=== PATIENT | male | born 1985 | race Caucasian/White ===

== ENCOUNTER 2017-05-19 19:04 | Emergency (ER) | payer MEDICAID ==
[~2017-05-19] VITALS: Ht 172.7 cm; Wt 72.6 kg
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
--- NOTE | 2017-05-19 19:32 | NUR ---
IVA TUBING MACHINE OPERATOR AT BEDSIDE FOR EVAL.
--- NOTE | 2017-05-19 19:39 | NUR ---
SUPERVISING PRODUCER AT BEDSIDE FOR EVAL.
[2017-05-19 19:40] LABS: APPEARANCE,URINE Turbid (CLEAR); BILIRUBIN,URINE Negative (NEGATIVE); BLOOD, URINE Negative Ery/uL (NEGATIVE); COLOR,URINE Yellow (YELLOW); KETONES,URINE 15 (NEGATIVE); LEUKOCYTE ESTERASE ,URINE Negative (NEGATIVE); NITRITE, URINE Negative (NEGATIVE); PROTEIN,URINE 30 mg/dl (NEGATIVE); UGLUCOSE Negative (NEGATIVE); UROBILINOGEN,URINE 0.2 EU/dL (0.2)
[2017-05-19 19:43] LABS: BASOPHILS # (AUTO) 0.1 /CMM (0.0-0.2); BASOPHILS % (AUTO) 1.2 % (0.0-2.0); EOSINOPHILS # (AUTO) 0.1 /CMM (0.0-0.7); EOSINOPHILS % (AUTO) 1.1 % (0.0-6.0); HEMATOCRIT 47 % (39-51); HEMOGLOBIN 15.4 g/dL (13.5-17.5); LYMPHOCYTES # (AUTO) 1.1 /CMM (0.8-4.8); LYMPHOCYTES % (AUTO) 19.1 % (20.0-44.0); MEAN CORPUSCULAR HEMOGLOBIN 30 PG (26.0-33.0); MEAN CORPUSCULAR HGB CONC 33 g/dl (31.0-36.0); MEAN CORPUSCULAR VOLUME 91 fL (80-96); MONOCYTES # (AUTO) 0.5 /CMM (0.1-1.30); MONOCYTES % (AUTO) 9.3 % (2.0-12.0); NEUTROPHILS # (AUTO) 3.8 /CMM (1.8-8.9); NEUTROPHILS % (AUTO) 69.3 % (43.0-81.0); PLATELET COUNT (AUTO) 301 /CMM (150-450); RDW COEFFICIENT OF VARIATION 12.3 (11.5-15.0); RED BLOOD CELL COUNT(AUTO) 5.18 MIL/uL (4.5-6.0); WHITE BLOOD COUNT (AUTO) 5.7 K/uL (4.3-11.0)
[2017-05-19 19:52] LABS: BACTERIA,URINE Moderate /HPF (None Seen); RBC,URINE 0-2 /HPF (0-2); SQUAMOUS EPITHELIAL CELL,UR Few /HPF (None Seen); WBC,URINE 0-2 /HPF (0-3)
[2017-05-19 19:53] LABS: CARBON DIOXIDE 28 mmol/L (21-32); CHLORIDE 106 mmol/L (98-107); GLUCOSE 112 mg/dL (74-106); POTASSIUM 3.6 mmol/L (3.5-5.1); SODIUM SERUM 141 mmol/L (136-145); UREA NITROGEN, BLOOD 13 mg/dL (7-18)
[2017-05-19 20:00] LABS: ACETAMINOPHEN 0 ug/ml (10-30); ALANINE AMINOTRANSFERASE 18 U/L (12-78); ALBUMIN 4.2 g/dL (3.4-5.0); ALCOHOL, BLOOD < 3 mg/dL (0-0); ALKALINE PHOSPHATASE 98 U/L (46-116); ASPARTATE AMINOTRANSFERASE 21 U/L (15-37); BILIRUBIN,DIRECT 0.2 mg/dL (0.0-0.2); BILIRUBIN,TOTAL 0.8 mg/dL (0.2-1.0); SALICYLATE 0.2 mg/dL (2.8-20.0); TOTAL PROTEIN, SERUM 7.4 g/dL (6.4-8.2)
[2017-05-19] MEDS ORDERED: OLANZAPINE 5 MG TABLET PO ONE (20:00)
[2017-05-19] MEDS ORDERED: OLANZAPINE 5 MG TABLET ONE (20:01)
--- NOTE | 2017-05-19 20:43 | NUR ---
CALLED [facility] FOR PSYCH EVAL, ETA 1 HOUR
--- NOTE | 2017-05-19 21:30 | NUR ---
ALLISON RN AT BEDSIDE FOR PSYCH EVAL.
--- NOTE | 2017-05-19 23:07 | NUR ---
CALLED [facility] FOR TRANSPORT TO [facility], ETA 30 MIN
--- NOTE | 2017-05-19 23:24 | NUR ---
REPORT GIVEN TO HARMAN AT [facility]. AWAITING TRANSFER.
--- NOTE | 2017-05-19 23:45 | NUR ---
TRANSFERED TO [facility]. STABLE CONDITION.
[2017-05-19 23:46] VITALS: BP 116/59
== END 2017-05-19 23:46 ==
LOC: ER 19:06 → EDSEX 19:06 → ER 23:46
DX: F29 Unspecified psychosis not due to a substance or known physiological condition (principal); F17.200 Nicotine dependence, unspecified, uncomplicated; F31.9 Bipolar disorder, unspecified; F20.9 Schizophrenia, unspecified; R82.99 Other abnormal findings in urine; Z59.0 Homelessness
CPT/HCPCS: 36415; 80048; 80076; 80305; 80329; 81001; 85025; 87086; 99285; 99406; A4606; G0480 ×2; Z7610; 81000-TC

== ENCOUNTER 2022-02-09 23:00 | Emergency (ER) | payer MEDICAID ==
[~2022-02-09] VITALS: Ht 172.7 cm; Wt 72.6 kg
--- NOTE | 2022-02-09 23:05 | NUR ---
BIB [employer] FOR C/O SI, PLANING TO USE A RAZOR. PD WILL PLACE THE PT ON [address]. PATIENT ALERT AND ORIENTED X3. AMBULATORY WITH NON LABORED BREATHING. PATIENT IN BED 14 BELONGINGS TAKEN AND PLACED IN A GOWN.
[2022-02-09 23:32] LABS: BASOPHILS # (AUTO) 0.1 K/uL (0.0-0.2); BASOPHILS % (AUTO) 0.8 % (0.0-2.0); EOSINOPHILS % (AUTO) 0.7 % (0.0-6.0); HEMATOCRIT 45 % (39-51); HEMOGLOBIN 15.3 g/dL (13.5-17.5); LYMPHOCYTES # (AUTO) 1.4 K/uL (0.8-4.8); LYMPHOCYTES % (AUTO) 9.5 % (20.0-44.0); MEAN CORPUSCULAR HGB CONC 34 g/dl (31.0-36.0); MEAN CORPUSCULAR VOLUME 89 fL (80-96); MONOCYTES # (AUTO) 1.2 K/uL (0.1-1.30); MONOCYTES % (AUTO) 8.4 % (2.0-12.0); NEUTROPHILS # (AUTO) 11.6 K/uL (1.8-8.9); NEUTROPHILS % (AUTO) 80.6 % (43.0-81.0); PLATELET COUNT (AUTO) 319 K/uL (150-450); RED BLOOD CELL COUNT(AUTO) 5.06 MIL/uL (4.5-6.0); WHITE BLOOD COUNT (AUTO) 14.4 K/uL (4.3-11.0)
--- NOTE | 2022-02-09 23:55 | NUR ---
COVID SWAB DONE AND SENT TO LAB
--- NOTE | 2022-02-09 23:56 | NUR ---
URINE COLLECTED AND SENT TO LAB
[2022-02-10 00:04] LABS: ALANINE AMINOTRANSFERASE 182 U/L (12-78); ALCOHOL, BLOOD < 3 mg/dL (0-0); ALKALINE PHOSPHATASE 113 U/L (46-116); ASPARTATE AMINOTRANSFERASE 60 U/L (15-37); BILIRUBIN,DIRECT 0.1 mg/dL (0.0-0.2); BILIRUBIN,TOTAL 0.4 mg/dL (0.2-1.0); CARBON DIOXIDE 23 mmol/L (21-32); CHLORIDE 105 mmol/L (98-107); GLUCOSE 110 mg/dL (74-106); SODIUM SERUM 138 mmol/L (136-145); UREA NITROGEN, BLOOD 23 mg/dL (7-18)
[2022-02-10 00:08] LABS: ACETAMINOPHEN 0 ug/ml (10-30)
[2022-02-10 00:43] LABS: BILIRUBIN,URINE NEGATIVE (NEGATIVE); COLOR,URINE YELLOW (YELLOW); LEUKOCYTE ESTERASE ,URINE NEGATIVE (NEGATIVE); NITRITE, URINE NEGATIVE (NEGATIVE); PROTEIN,URINE TRACE mg/dl (NEGATIVE); UGLUCOSE NEGATIVE (NEGATIVE); UROBILINOGEN,URINE 0.2 EU/dL (0.2)
[2022-02-10 00:48] LABS: BACTERIA,URINE None seen /HPF (None Seen); RBC,URINE 0-2 /HPF (0-2); SQUAMOUS EPITHELIAL CELL,UR Few /HPF (None Seen); WBC,URINE 0-2 /HPF (0-3)
--- NOTE | 2022-02-10 01:32 | NUR ---
CRISIS TEAM @ BEDSIDE FOR EVAL.
--- NOTE | 2022-02-10 01:32 | NUR ---
Luther negrete in [facility] - 02/10/22 at 0156 by JOSESITO PSYCH DOC AT BEDSIDE.
--- NOTE | 2022-02-10 02:51 | NUR ---
[facility] [employer] FAXED TO [facility].
[2022-02-10] MEDS ORDERED: LORAZEPAM 1 MG TABLET ONE (02:53)
[2022-02-10] MEDS ORDERED: LORAZEPAM 1 MG TABLET PO ONE (03:00)
--- NOTE | 2022-02-10 05:33 | NUR ---
per [facility] intake, pt got accepted at [facility] [place] [address] ibrahim [phone]
--- NOTE | 2022-02-10 05:36 | NUR ---
[facility] ETA: [id number]
--- NOTE | 2022-02-10 07:09 | NUR ---
[facility] at bedside for picker.
--- NOTE | 2022-02-10 07:09 | NUR ---
PATIENT GOING TO [facility] VIA AMBULANCE IN STABLE CONDITION.
[2022-02-10 07:10] VITALS: BP 146/98
== END 2022-02-10 07:10 ==
LOC: ER 23:01
DX: R45.851 Suicidal ideations (principal); D72.829 Elevated white blood cell count, unspecified; R79.89 Other specified abnormal findings of blood chemistry; F31.9 Bipolar disorder, unspecified; F17.200 Nicotine dependence, unspecified, uncomplicated; F20.9 Schizophrenia, unspecified; Z20.822 Contact with and (suspected) exposure to COVID-19
CPT/HCPCS: 36415; 80048; 80076; 80143; 80307; 80320; 81001; 85025; 87426; 99285; C9803; G0480